=== PATIENT | male | born 1990 | race African-American/Black ===

== ENCOUNTER 2019-01-27 19:11 | Inpatient (IN) ==
[2019-01-27 19:48] LABS: Basophils % 0.5 % (0.0-0.8); Eosinophils # 0.2 10*3/uL (0.0-0.87); Eosinophils % 1.8 % (0.00-10.9); Hemoglobin 12.3 GM/DL (14.0-18.0); Immature Granulocytes % 0.2 %; Immature Granulocytes Absolute 0.02 #; Lymphocytes % 47.9 % (21.2-54.2); Mean Corpuscular HGB Conc 30.8 GM/DL (32-36); Mean Corpuscular Hemoglobin 26 PG (27-34); Mean Corpuscular Volume 84.6 FL (87-102); Mean Platelet Volume 10.8 FL (9.6-12.0); Monocytes # 0.6 10*3/uL (0.11-0.8); Neutrophils # 3.5 10*3/uL (1.4-7.4); Neutrophils % 42.6 % (38.7-73.9); Platelet Count 220 T/CUMM (130-400); Red Blood Count 4.73 MC/CUMM (3.8-5.5); Red Cell Distribution Width 12.5 % (9.3-17.3); White Blood Count 8.3 T/CUMM (4-12)
[2019-01-27 20:00] LABS: Barbiturates Screen,Urine Negative (Negative); Benzodiazepines Screen,Urine Negative (Negative); Cannabinoid Screen,Urine Negative (Negative); Opiate Screen,Urine Negative (Negative); Phencyclidine Screen,Urine Negative (Negative)
[2019-01-27 20:08] LABS: Alanine Aminotransferase 25 U/L (16-61); Albumin 3.4 G/DL (3.4-5.0); Alkaline Phosphatase 71 U/L (45-117); Aspartate Amino Transferase 12 U/L (0-37); Bilirubin,Total < 0.39 MG/DL (0.2-1.0); Blood Urea Nitrogen 16 MG/DL (7-18); Calcium 8.6 MG/DL (8.5-10.1); Glucose 101 MG/DL (74-106); Osmolality,Calculated 279.4 MOS/KG (273-304); Potassium 3.7 MMOL/L (3.5-5.1); Sodium 140 MMOL/L (136-145); Total Protein 7.4 G/DL (6.4-8.3)
[2019-01-27 20:11] LABS: Acetaminophen < 2.0 UG/ML (10-30); Salicylate < 2.8 MG/DL (2.8-20)
[2019-01-27] MEDS ORDERED: ACETAMINOPHEN 325 MG TABLET PO PRN (23:42)
[2019-01-27] MEDS ORDERED: ONDANSETRON 4 MG/2 ML VIAL IV PRN (23:42)
[2019-01-27] MEDS ORDERED: NICOTINE 21 MG/24 HR PATCH TRANSDERM PRN (23:42)
[2019-01-27] MEDS ORDERED: LORazepam 1 MG TABLET PO PRN (23:45)
[2019-01-28 12:34] VITALS: BP 126/77
== END 2019-01-28 13:10 | DRG 881 ==
LOC: N.ED 19:11 → N.EDINP 23:42 → N.5E 01-28 00:50
PROVIDERS: ADMIT Hospitalist; ATTEND Hospitalist